=== PATIENT | female | born 1935 | race Caucasian/White ===

== ENCOUNTER → 2017-01-18 | Outpatient (CLI) | payer OTHER ==
[~2017-01-18] VITALS: Ht 165.1 cm; Wt 62.9 kg
[~2017-01-18] MED LIST: ADULT LOW DOSE81 MG PO; ARICEPT 5 MG TAB5 MG PO; B12 5,000 MCG1 EACH SL; CYMBALTA30 MG PO; EFFEXOR37.5 MG PO; KEPPRA250 MG PO; OMEGA 3-6-9 CO1 EACH PO; PHENYTOIN SODI100 M3 PO; PREDNISONE 5 MG5 MG PO; PREVACID15 MG PO; PRILOSEC 20 MG20 MG PO; TRAMADOL 50 MG50 MG PO; VITAMIN D400 UNI1 PO; VITAMIN E200 UNI4 PO; VITAMINC500 PO; VOLTAREN GEL 1100 G1 TOP
--- NOTE | ~2017-01-18 | HPC ---
[facility] [place] [address] PAIN MANAGEMENT CONSULTATION Name: REDDY PANIAGUA APRIL Room #: REG KATINA Villalta#: [id number] Admission: 01/18/17 Attend Phys: Shaka Davis DO Discharge: Date of : 33 Report #: [id number] THIS REPORT FOR: //name// CC: Chaparro Davis The patient is a pleasant 81-year-old female being treated for lumbar radiculopathy secondary to spinal stenosis was seen 12/28/2016, given a midline epidural injection at L3-L4 at that time. She prior had a right SI joint injection in September 2016. She returns to pain clinic today noting that injection afforded good incremental relief. Patient specifically notes 75% improvement that is ongoing. She still, however, has some radicular component of pain, noting that the back pain, however, is gone. She rates her pain fairly high; however, about 7/10. Again, pain today is primarily in the right groin and upper leg. Exacerbated with standing and walking. The patient apparently has an MRI this , but it sounds like it is more from her pelvis looking follow up from prior diagnosis of lymphoma. May benefit from lumbar MRI if symptoms do not glenys with today's intervention. PHYSICAL EXAMINATION: Shows an 82-year-old female, BMI is 23.1 kilograms per meter squared. Vital signs generally stable. Still has slight decreased right hip flexion, lower extremity extension strength. Moderately antalgic gait. ASSESSMENT: Symptomatic lumbar radiculopathy secondary to spinal stenosis. PROCEDURE: Lumbar epidural injection under fluoroscopy. PROCEDURE NOTE: After both written and informed consent to include risk of spinal cord damage, increased pain, weakness and dural puncture, the patient was taken to the fluoroscopy suite, placed in the prone position. After sterile prep and drape, a skin wheal with lidocaine was raised. A 22-gauge epidural Tuohy needle was inserted in the midline at L3-4 with good loss to resistance. Negative aspiration for cerebrospinal fluid or blood was noted. Then 1 mL of Omnipaque under biplanar fluoroscopy showed good spread within the epidural space. This was followed with 80 mg of triamcinolone plus 1 mL of 1.5% preservative-free Xylocaine, 0.5 mL Xylocaine was then injected to flush the needle; it was removed. The patient was monitored for an appropriate period of time and discharged in good and stable condition. <ELECTRONICALLY SIGNED> By: Shaka Davis DO 01/21/17 1237 1339 [id number] Shaka Davis DO /nt
[2017-01-18 13:31] VITALS: BP 161/88
== END ==
LOC: PAIN 06:40
DX: M54.16 Radiculopathy, lumbar region (principal); M48.06 Spinal stenosis, lumbar region; Z87.891 Personal history of nicotine dependence

== ENCOUNTER → 2017-02-08 | Outpatient (CLI) | payer OTHER ==
[~2017-02-08] VITALS: Ht 165.1 cm; Wt 60.8 kg
--- NOTE | ~2017-02-08 | HPC ---
[facility] [place] [place] [address] PAIN MANAGEMENT CONSULTATION Name: REDDY PANIAGUA APRIL Room #: REG KATINA Villalta#: [id number] Admission: 02/08/17 Attend Phys: Shaka Davis DO Discharge: Date of : 33 Report #: [id number] THIS REPORT FOR: //name// CC: Chaparro Davis HISTORY OF PRESENT ILLNESS: The patient is a pleasant 81-year-old female typically treated for lumbar radiculopathy secondary to spinal stenosis, component of right SI joint dysfunction. Last seen in the pain clinic 01/18/2017. I repeated an L3-L4 lumbar epidural injection (prior 12/28/2016 L3-L4 lumbar epidural injection under fluoroscopy has afforded some 75% relief of baseline pain). She notes the curious thing happened over the second injection. She developed exquisite tailbone pain. Again, we were good 8-10 inches above the tailbone during the injection. I reviewed the images. They appeared generally identical to the prior injection, 12/28/2016. She does have tenderness to palpation over the tailbone. She does note, however, that fortunately the radicular pain seems to be improved. She does not have classic L3 radicular pattern pain at this time. She is noticing that she has some pain in the right knee, which has been ongoing, seems to be getting worse recently. Today physical examination does show ballotable edema over the right knee in an 81-year-old female, BMI is 22.3 kilograms per meter squared. Does have some tenderness over the sacrum as well. Blood pressure is slightly elevated 151/91, pulse 95, respirations 16. Gait is tandem. Lumbar flexion is limited. ASSESSMENT: Symptomatic lumbar radiculopathy secondary to spinal stenosis and right sacroiliac joint pain by history with new diagnosis of right knee degenerative joint disease and tailbone pain. RECOMMENDATIONS: 1. We will seek x-rays of the pelvis and sacrum and right knee. 2. Follow up in 2 weeks for reevaluation. If the ballotable edema persists in that right knee, we may consider right knee arthrocentesis and steroid injection. We will further evaluate subjective tailbone pain and review diagnostic studies at that time. I am dictating today a few hours after having seen the patient. I had the opportunity to review the x-rays obtained earlier today. Right knee notes minimal effusion. There appears to be a little narrowing of the intraarticular joint, more so on the medial aspect. Pelvis x-ray show no definitive pelvic or sacral fracture. Specific view of the sacrum and coccyx notes the lower coccygeal segment angles forward, though within normal limits again and no acute fractures noted. There is some DJD noted at the articulation of the coccyx and sacrum. Approximately 25 minutes was spent with the patient today in clinic, [address] [place] [address] PAIN MANAGEMENT CONSULTATION Name: REDDY PANIAGUA APRIL Room #: REG KATINA Villalta#: [id number] Admission: 02/08/17 Attend Phys: Shaka Davis DO Discharge: Date of : 33 Report #: [id number] time spent counseling the patient, reviewing new pain issues and suggesting diagnostic criteria. By: 1601 21 Shaka Davis DO /alexis
[2017-02-08 14:24] VITALS: BP 151/91
== END | disposition home or self-care (01) ==
LOC: PAIN 07:16
DX: M48.06 Spinal stenosis, lumbar region (principal); M17.11 Unilateral primary osteoarthritis, right knee; M53.3 Sacrococcygeal disorders, not elsewhere classified; Z87.891 Personal history of nicotine dependence

== ENCOUNTER → 2017-02-22 | Outpatient (CLI) | payer OTHER ==
[~2017-02-22] VITALS: Ht 165.1 cm; Wt 61.7 kg
--- NOTE | ~2017-02-22 | HPC ---
[facility] [place] [address] PAIN MANAGEMENT CONSULTATION Name: REDDY PANIAGUA APRIL Room #: REG KATINA Villalta#: [id number] Admission: 02/22/17 Attend Phys: Shaka Davis DO Discharge: Date of : 33 Report #: [id number] THIS REPORT FOR: //name// CC: Chaparro Davis HISTORY OF PRESENT ILLNESS: The patient is an 81-year-old female, prior seen in the pain clinic 02/08/2017. She has been treated for symptomatic lumbar radiculopathy secondary to spinal stenosis, component of right SI mediated pain. Last visit, when she had fallen, had some tailbone pain. I had ordered x-rays of the right knee and pelvis. These all were fairly unremarkable from a fracture standpoint. She returns to the pain clinic today with ongoing lumbar radicular pain, which she rates 5 on a 0-10 visual analog scale. Notes the right knee occasionally locks. She uses a cane in her left hand. Again, the x-ray was nondiagnostic, certainly no fractures noted. PHYSICAL EXAMINATION: GENERAL: Shows an 81-year-old female. BMI is 22.6 kilograms per meter squared. MUSCULOSKELETAL: Rises from the chair using armrests, antalgic gait. Diffuse tenderness across the low back. Radicular pain, bilateral legs, posterior aspect. ASSESSMENT: Symptomatic lumbar radiculopathy secondary to spinal stenosis. RECOMMENDATION: Repeat epidural injection under fluoroscopy today. At this time, we will use an L4-L5 approach. Follow up simply as needed. PROCEDURE: Lumbar epidural injection under fluoroscopy. PROCEDURE NOTE: After both written and informed consent to include risk of spinal cord damage, increased pain, weakness and dural puncture, the patient was taken to the fluoroscopy suite, placed in the prone position. After sterile prep and drape, a skin wheal with lidocaine was raised. A 22-gauge epidural Tuohy needle was inserted in the midline at the level of L4-L5 with good loss to resistance. Negative aspiration for cerebrospinal fluid or blood was noted. Then 1 mL of Omnipaque under biplanar fluoroscopy showed good spread within the epidural space. This was followed with 80 mg of triamcinolone plus 1 mL of 1.5% preservative-free Xylocaine, 0.5 mL Xylocaine was then injected to flush the needle; it was removed. The patient was monitored for an appropriate period of time and discharged in good and stable condition. <ELECTRONICALLY SIGNED> By: Shaka Davis DO 02/25/17 0750 1558 0104 Shaka Davis DO /nt
[2017-02-22 13:55] VITALS: BP 150/88
== END ==
LOC: PAIN 07:17
DX: M48.06 Spinal stenosis, lumbar region (principal); M54.16 Radiculopathy, lumbar region; Z87.891 Personal history of nicotine dependence

== ENCOUNTER 2017-03-22 17:50 | Inpatient (IN) | payer OTHER ==
[~2017-03-22] VITALS: Ht 165.1 cm; Wt 59.0 kg
--- NOTE | ~2017-03-22 | EKG ---
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
--- NOTE | ~2017-03-22 | HC ---
[facility] [place] [place] [address] CONSULTATION Name: REDDY PANIAGUA APRIL Room #: 416-P ADM IN M.R.#: [id number] Admission: 03/22/17 Attend Phys: Blossom Anand MD Discharge: Date of : 33 Report #: [id number] THIS REPORT FOR: //name// CC: Chaparro Gómez DATE OF SERVICE: 03/22/2017 REASON FOR CONSULTATION: Left femur fracture. HISTORY OF PRESENT ILLNESS: The patient is an 81-year-old female who fell off her steps at home today, sustained a left distal femur fracture. She was brought to the emergency room and admitted for definitive treatment. PAST MEDICAL HISTORY: Significant for bilateral total hip arthroplasty. CURRENT MEDICATIONS: Include diclofenac, vitamin D, vitamin B12, tramadol, vitamin C, aspirin 81 mg p.o. 3 times a week, duloxetine. ALLERGIES: Include LEVAQUIN, which causes seizures. SOCIAL HISTORY: She does not smoke or drink. She lives alone at home. She does ambulate with a cane. PHYSICAL EXAMINATION: GENERAL: This is a well-developed, well-nourished female in no acute distress. She is alert and oriented, pleasant, cooperative with exam. EXTREMITIES: Examination of left lower extremity shows to have a knee immobilizer in place. She is neurologically intact distally with full sensation to light touch in the foot and toes. She has 2+ dorsalis pedis pulse. Anytime her leg is moved, she does have severe pain in her left knee. X-RAY EXAMINATION: AP and lateral of the left femur and knee showed to have a distal third femur fracture with approximately 90 degrees of posterior angulation, apex anterior. ASSESSMENT: Left distal femur fracture. PLAN: Treatment options were discussed today with the patient. I have her scheduled for 8 a.m. tomorrow morning for ORIF of her distal femur. Unfortunately, this is not amenable to a nail secondary to her total hip arthroplasty. We will likely have to put a long plate on to span the region of her distal femoral stem in order to decrease the chance of a stress riser. We discussed the limited weightbearing status postoperatively as well as the need for possible long term placement for [place] [address] CONSULTATION Name: REDDY PANIAGUA APRIL Room #: 416-P [facility] IN .R.#: [id number] Admission: 03/22/17 Attend Phys: Blossom Anand MD Discharge: Date of : 33 Report #: [id number] understanding and wished to proceed. Thank you for allowing us to participate in the care of the patient. <ELECTRONICALLY SIGNED> By: Mihai Gómez MD 03/26/17 0728 2226 4790 Mihai Gómez MD /nt
--- NOTE | ~2017-03-22 | H ---
[facility] [place] [address] HISTORY AND PHYSICAL Name: REDDY PANIAGUA APRIL Room #: 416-P DIS IN M.R.#: [id number] Admission: 03/22/17 Attend Phys: Blossom Anand MD Discharge: 03/26/17 Date of : 33 Report #: [id number] THIS REPORT FOR: //name// CC: Chaparro Gómez ATTENDING PHYSICIAN: Julio Cesar Medrano PRIMARY CARE PHYSICIAN: Chaparro Pagan M.D. CHIEF COMPLAINT: Left leg pain after a fall. HISTORY OF PRESENT ILLNESS: The patient is an 81-year-old female, who lives at home. She was going down her front steps when she missed the last step and fell forward onto her left leg. She landed in the grass. She did not hit her head or lose consciousness. She immediately had severe left leg pain that radiated down into her left ankle. She could not ambulate. She laid on the ground and call for help with her neighbor, called EMS. She was brought in the ER, noted to have a femur fracture and had been admitted for surgical evaluation. She has been receiving pain medication, but continuous to have severe left leg spasm. PAST MEDICAL HISTORY: Seizure disorder, COPD, B12 deficiency, GERD, anemia, lymphoma, mild dementia, osteoarthritis. PAST SURGICAL HISTORY: Bilateral hip replacement, cataract repair. ALLERGIES: LEVAQUIN causes seizures. HOME MEDICATIONS: Vitamin B12 daily, vitamin D daily, tramadol 50 mg p.r.n., vitamin C daily, vitamin E daily, aspirin 81 mg 3 times a week, Cymbalta 30 mg p.o. at bedtime, and fish oil daily. SOCIAL HISTORY: The patient lives home alone. She is an ex-smoker, having smoked 1 pack of cigarettes per day, but quit in 2008. Denies any alcohol use. She normally ambulates with a cane. FAMILY HISTORY: Significant for diabetes in her mother and her father of Hodgkin's lymphoma. REVIEW OF SYSTEMS: The patient has been treated for some type of lymphoma. She receives infusion about every 3 months. She is due this month for treatment. She follows with Dr. Avery. She has also been having some recent right leg. Thereof pain felt to be related to her lower back. She sees Dr. Davis in pain management for epidural shot. Her last shot was February. She is actually getting set up for an MRI of her back to further evaluate this. All other [address] [address] HISTORY AND PHYSICAL Name: REDDY PANIAGUA APRIL Room #: 416-P [facility] IN M.R.#: [id number] Admission: 03/22/17 Attend Phys: Blossom Anand MD Discharge: 03/26/17 Date of : 33 Report #: [id number] 12-point review of systems was reviewed with the patient, otherwise negative unless stated in the HPI. PHYSICAL EXAMINATION: GENERAL: The patient is an alert female in no acute distress. VITAL SIGNS: Temperature 36.6, heart rate 89, respirations 22, blood pressures 137/77, oxygen is 97% on room air. HEENT: PERRLA. Sclerae is nonicteric. Oral mucosa is pink and moist. NECK: Supple, no JVD noted. CARDIOVASCULAR: Normal S1, S2. No murmurs, rubs or gallops. RESPIRATORY: Breath sounds are clear bilaterally. No wheezing or rhonchi. Breathing is nonlabored. ABDOMEN: Soft, nontender, nondistended with positive bowel sounds. VASCULAR: Her left foot is somewhat cool. Pedal pulses 1+ and right foot pedal pulses2+. There is no edema. MUSCULOSKELETAL: She does have significant tenderness of the left lower extremity. There is some swelling on the left thigh. The left knee is currently in an immobilizer. NEUROLOGIC: The patient is alert and oriented x 3. Speech is clear. She is moving her upper extremities equally. LABORATORY DATA AND DIAGNOSTICS: WBC is 6.2, hemoglobin 11.7, platelets 149. Sodium 137, potassium 4.0, BUN 16, creatinine 1.1, glucose 110. LFTs are within normal limits. INR is 1.0. X-ray showed an acute comminuted and angulated fracture of the distal femoral metadiaphysis. The angulation measures approximately 98 degrees. ASSESSMENT AND PLAN: 1. Left femur fracture. The patient has been placed in immobilizer while awaiting orthopedic evaluation. She will need repair. She is neurovascularly intact. Continue with pain medication diazepam for muscle spasms. We will keep her n.p.o. Chest x-ray and UA for preop evaluation. 2. Chronic obstructive pulmonary disease, this is stable. We will add breathing treatments p.r.n. 3. Seizure disorder. She is not on any current medication. 4. History of lymphoma. She is due for outpatient treatment this month. She follows with Dr. Avery. 5. Mild dementia. The patient is forgetful and is somewhat repetitive, but able to maker her own decisions. 6. Deep vein thrombosis prophylaxis. Placed SCDs. [address] [address] HISTORY AND PHYSICAL Name: REDDY PANIAGUA APRIL Room #: 416-P [facility] IN M.R.#: [id number] Admission: 03/22/17 Attend Phys: Blossom Anand MD Discharge: 03/26/17 Date of : 33 Report #: [id number] We will continue to follow the patient closely throughout the hospitalization and make changes based on clinical status. <ELECTRONICALLY SIGNED> By: DOC Mathis 03/28/17 0109 0920 1013 DOC Mathis /alexis
--- NOTE | ~2017-03-22 | O ---
[place] [address] OPERATIVE REPORT Name: REDDY PANIAGUA APRIL Room #: 416-P ADM IN M.R.#: [id number] Admission: 03/22/17 Attend Phys: Blossom Anand MD Discharge: Date of : 33 Report #: [id number] THIS REPORT FOR: //name// CC: Chaparro Gómez DATE OF SERVICE: 03/23/2017 PREOPERATIVE DIAGNOSIS: Left distal femur fracture. POSTOPERATIVE DIAGNOSIS: Left distal femur fracture. PROCEDURE: ORIF of left distal femur fracture. SURGEON: Mihai Gómez MD. PLUSH FINISHER: Tran Avelar PA-C. ANESTHESIA: General. IMPLANTS: Synthes 14-hole distal lateral femoral locking plate with multiple cortical and locking screws. ESTIMATED BLOOD LOSS: 100 mL. CONDITION UPON LEAVING THE OPERATING ROOM: Stable. INDICATIONS FOR PROCEDURE: The patient is an 81-year-old female who fell off of her porch and sustained a left supracondylar distal femur fracture. She has had a history of previous left total hip arthroplasty with a cemented stem. After discussion with her, she elected for ORIF. Given the nature of her previous total hip arthroplasty, it was decided to use a long locking plate to stay on the entire femur up to the hip arthroplasty. DESCRIPTION OF PROCEDURE: Risks, benefits, alternatives, and complications were discussed in detail with the patient including but not limited to risk of anesthesia, risk of damage to nerves, arteries, blood vessels, risk for infection, bleeding, risk for malunion, nonunion, and need for reoperation. An informed consent was obtained from the patient. The left knee was appropriately marked in the preoperative holding area. She was brought to the operating room and placed in the supine position on the operating room table. General endotracheal anesthesia was induced without complication. Left lower extremity was prepped and draped in normal sterile fashion. Timeout was performed, properly identifying the patient, procedure, as well as the instrumentation and implants. All in the operating room were in agreement. A lateral incision over [address] [address] OPERATIVE REPORT Name: REDDY PANIAGUA APRIL Room #: 416-P [facility] IN M.R.#: [id number] Admission: 03/22/17 Attend Phys: Blossom Anand MD Discharge: Date of : 33 Report #: [id number] the distal femur was then made with #10 blade through the skin. Dissection was taken down to the IT, and the IT band was split longitudinally in line with its fibers. A David elevator was used to clean off the tissue of the distal femur. The fracture was then identified under fluoroscopic imaging and palpated. There was some comminution and impaction of the fracture, and it was decided to leave fixed with submuscular 14-hole plate. This was fixed distally with a guidewire and then fluoroscopic imaging under AP and lateral images was used to verify adequate positioning of the plate, both proximally and distally. One cortical screw was used distally to bring the plate down to the bone and then locking screws were placed in the distal 5 holes. The plate was then fixed provisionally proximally using a guidewire and then one cortical screw proximally was placed to bring the plate down to the bone. After this, percutaneous locking screws were placed both in unicortical femoral stem and bicortical more distal, more completion of the plate construct. After this, final fluoroscopic images were brought in to verify adequate fracture reduction and placement of hardware. Wound was thoroughly irrigated with normal saline. IT band was closed with 0 Vicryl, skin was closed with 2-0 Vicryl, skin osiel, soft dressing of Adaptic, 4 x 4s, ABD, and Medipore tape were applied. The patient tolerated this procedure well and went to the recovery room under the care of anesthesia postoperatively. <ELECTRONICALLY SIGNED> By: Mihai Gómez MD 03/26/17 0728 1314 1820 Mihai Gómez MD /nt
[~2017-03-22 17:50] MED LIST changes: -HYDROCODONE-AP1 EAC6 PO
[2017-03-22 19:24] LABS: ABSOLUTE NEUTROPHILS 4.9 thou/uL (1.4-8.2); BASOPHILS 0.6 % (0.0-2.0); EOSINOPHILS 0.4 % (0.0-3.0); HEMATOCRIT 33.8 % (37.0-47.0); HEMOGLOBIN 11.7 gm/dL (12.0-15.0); LYMPHOCYTES 14.5 % (24.0-44.0); MCH 32.5 pg (26.0-34.0); MCHC 34.8 g/dL (28.0-37.0); MCV 93.4 fL (80.0-100.0); MONOCYTES 5.2 % (1.0-8.0); PLATELET COUNT 149 thou/uL (150-400); POLYS 79.3 % (36.0-66.0); RBC 3.62 mil/uL (4.20-5.00); RDW 13.5 % (10.5-14.5); WBC 6.2 thou/uL (4.0-11.0)
[2017-03-22 19:30] LABS: CALCIUM 8.4 mg/dL (8.5-10.1); CREATININE 1.1 mg/dL (0.6-1.0)
[2017-03-22 19:35] LABS: ALBUMIN 3.6 g/dL (3.4-5.0); TOTAL BILIRUBIN 0.5 mg/dL (<0.1-1.0); TOTAL PROTEIN 6.5 g/dL (6.4-8.2)
[2017-03-22 19:36] LABS: APTT 23.7 Seconds (24.5-32.8); PROTIME 10.4 Seconds (9.3-11.4)
[2017-03-22 19:38] LABS: MANUAL DIFF NO
[2017-03-22 21:04] VITALS: BP 134/86
[2017-03-22 21:25] VITALS: BP 135/85
[2017-03-23] VITALS (8 sets, daily range): BP systolic 93–122; BP diastolic 44–84
[2017-03-23 04:47] LABS: URINE BILIRUBIN NEGATIVE (Negative); URINE BLOOD 1+ (Negative); URINE COLOR YELLOW; URINE GLUCOSE-RANDOM* NEGATIVE (Negative); URINE KETONES 1+ (Negative); URINE LEUKOCYTES-REFLEX NEGATIVE (Negative); URINE PROTEIN (DIPSTICK) NEGATIVE (Negative); URINE SPECIFIC GRAVITY 1.025 (1.003-1.035); URINE UROBILINOGEN 0.2 E.U./dl (0.2-1.0)
[2017-03-23 05:03] LABS: CASTS None Seen /LPF (None Seen); SQUAMOUS 0-3 Few /LPF (0-3); URINE RBC 0-2 Rare /HPF (0-2)
[2017-03-23 05:04] LABS: CRYSTALS None Seen /LPF (None Seen); URINE WBC-REFLEX 0-5 Rare /HPF (0-5)
[2017-03-23 14:05] LABS: HEMATOCRIT 24.5 % (37.0-47.0); MCH 32.1 pg (26.0-34.0); MCHC 34.5 g/dL (28.0-37.0); MCV 93.1 fL (80.0-100.0); RBC 2.63 mil/uL (4.20-5.00); RDW 13.5 % (10.5-14.5); WBC 7.5 thou/uL (4.0-11.0)
[2017-03-23 14:11] LABS: HEMOGLOBIN 8.5 gm/dL (12.0-15.0)
[2017-03-24] VITALS (8 sets, daily range): BP systolic 88–112; BP diastolic 44–61
[2017-03-24 02:00] LABS: MCH 32.8 pg (26.0-34.0); MCHC 34.6 g/dL (28.0-37.0); MCV 94.6 fL (80.0-100.0); RBC 2.04 mil/uL (4.20-5.00); RDW 13.7 % (10.5-14.5); WBC 6.2 thou/uL (4.0-11.0)
[2017-03-24 02:20] LABS: ALBUMIN 2.4 g/dL (3.4-5.0); CALCIUM 7.1 mg/dL (8.5-10.1); CREATININE 0.9 mg/dL (0.6-1.0); PHOSPHORUS 3.8 mg/dL (2.5-4.9); POTASSIUM 4.3 mmol/L (3.5-5.1)
[2017-03-24 02:21] LABS: HEMATOCRIT 19.3 % (37.0-47.0); HEMOGLOBIN 6.7 gm/dL (12.0-15.0)
[2017-03-24 03:32] LABS: HIV-1 P24 AG Nonreactive (Nonreactive)
[2017-03-24 11:22] LABS: ABSOLUTE RETIC COUNT 0.0433 10^6/uL; OBSERVED RETIC COUNT 2.13 % (0.6-2.6)
[2017-03-25 04:01] VITALS: BP 105/62
[2017-03-25 08:10] LABS: HEMATOCRIT 24.8 % (37.0-47.0); HEMOGLOBIN 8.6 gm/dL (12.0-15.0); MCH 31.7 pg (26.0-34.0); MCHC 34.6 g/dL (28.0-37.0); MCV 91.7 fL (80.0-100.0); RBC 2.7 mil/uL (4.20-5.00); RDW 15.1 % (10.5-14.5); WBC 3.7 thou/uL (4.0-11.0)
[2017-03-25 08:32] LABS: ALBUMIN 2.3 g/dL (3.4-5.0); CALCIUM 7.3 mg/dL (8.5-10.1); PHOSPHORUS 2.3 mg/dL (2.5-4.9); POTASSIUM 3.9 mmol/L (3.5-5.1)
[2017-03-25 09:18] VITALS: BP 145/71
[2017-03-25 17:36] VITALS: BP 126/90
[2017-03-25 20:58] VITALS: BP 131/71
[2017-03-26 05:04] VITALS: BP 132/77
[2017-03-26 06:22] LABS: MCHC 34.6 g/dL (28.0-37.0); MCV 92.4 fL (80.0-100.0); RBC 2.82 mil/uL (4.20-5.00); RDW 14.9 % (10.5-14.5); WBC 3.4 thou/uL (4.0-11.0)
[2017-03-26 06:40] LABS: CALCIUM 7.8 mg/dL (8.5-10.1); CREATININE 0.9 mg/dL (0.6-1.0); POTASSIUM 4.2 mmol/L (3.5-5.1)
[2017-03-26 08:00] VITALS: BP 138/75
[2017-03-26] MEDS ORDERED: HYDROCODONE-AP1 EAC6 PO (12:53)
[2017-03-26 23:07] LABS: HBsAG-EMPLOYEE EXPOSURE Negative (Negative); HCV AB-EMPLOYEE EXPOSURE <0.1 (0.0-0.9)
== END 2017-03-26 15:58 | DRG 480 ==
LOC: ER 17:50 → EROBS 19:55 → 4N 19:55
PROVIDERS: Emergency Medicine; Family Medicine; Hospitalist; Internal Medicine Hematology & Oncology; Nurse Practitioner Acute Care; Orthopaedic Surgery
PROC: 0QSC04Z Reposition Left Lower Femur with Internal Fixation Device, Open Approach (ICD-10-PCS; principal; 2017-03-23)
PROC: 30233N1 Transfusion of Nonautologous Red Blood Cells into Peripheral Vein, Percutaneous Approach (ICD-10-PCS; 2017-03-24)
DX: S72.402A Unspecified fracture of lower end of left femur, initial encounter for closed fracture (principal); E43 Unspecified severe protein-calorie malnutrition; C91.10 Chronic lymphocytic leukemia of B-cell type not having achieved remission; D69.6 Thrombocytopenia, unspecified; E53.8 Deficiency of other specified B group vitamins; D64.9 Anemia, unspecified; F03.90 Unspecified dementia, unspecified severity, without behavioral disturbance, psychotic disturbance, mood disturbance, and anxiety; J44.9 Chronic obstructive pulmonary disease, unspecified; M19.90 Unspecified osteoarthritis, unspecified site; K21.9 Gastro-esophageal reflux disease without esophagitis; Z96.643 Presence of artificial hip joint, bilateral; G40.909 Epilepsy, unspecified, not intractable, without status epilepticus; Z60.2 Problems related to living alone; Z82.49 Family history of ischemic heart disease and other diseases of the circulatory system; Z88.1 Allergy status to other antibiotic agents; Z87.891 Personal history of nicotine dependence; Z83.3 Family history of diabetes mellitus; Z80.7 Family history of other malignant neoplasms of lymphoid, hematopoietic and related tissues; W10.8XXA Fall (on) (from) other stairs and steps, initial encounter; Y93.89 Activity, other specified; Y92.89 Other specified places as the place of occurrence of the external cause; Y99.8 Other external cause status; Z86.718 Personal history of other venous thrombosis and embolism; Z68.21 Body mass index [BMI] 21.0-21.9, adult
CPT/HCPCS: 10091; 50010; 50101; 50386; 50417; 51412; 55430; 56528; 62110; 62900; 70005

== ENCOUNTER → 2017-03-22 | Outpatient (CLI) | payer OTHER ==
[~2017-03-22] VITALS: Ht 165.1 cm; Wt 60.3 kg
[~2017-03-22] MED LIST changes: +HYDROCODONE-AP1 EAC6 PO
--- NOTE | ~2017-03-22 | HPC ---
[facility] [place] [address] PAIN MANAGEMENT CONSULTATION Name: REDDY PANIAGUA APRIL Room #: REG KATINA Villalta#: [id number] Admission: 03/22/17 Attend Phys: Shaka Davis DO Discharge: Date of : 33 Report #: [id number] THIS REPORT FOR: //name// CC: Chaparro Davis DATE OF SERVICE: 03/22/2017 HISTORY OF PRESENT ILLNESS: The patient is an 81-year-old female last seen in the pain clinic on 02/22/2017. The patient has been given 3 lumbar epidural injections, she was initially seen in consultation in September with low back radicular pain and SI mediated pain. Given a right SI joint injection in September, followed up some 3 months later in December with ongoing axial back pain. She has had 3 epidural injections, 12/28/2016, 01/18/2017, and last visit 02/22/2017. The patient notes that while these injections have afforded good relief, she states 85% from the last injection and it has been over 3 weeks, she still has pain that interferes with function. She rates the pain about 6 on a 0-10 visual analog scale. Notes pain is primarily right knee in between hips the low back. The bigger concern is ongoing right leg weakness, which has been quite problematic. This started about 2005 and has been ongoing. The patient uses a cane "for security." She is tender in the left hand. She does not use a cane, which she has at home. She notes pain is 6/10, but it does not interfere with standing or walking. Bigger concern again, however, this ongoing weakness in that right leg. We reviewed her medical history, she had a total hip arthroplasties, left in 2001, right in 2002. She was actually doing fairly well until she tripped over her cane in 2013, fell and broke her pelvis. Had axial back and radicular pain with this. Again, the pain improvement has been significant with the epidural injections, but ongoing right leg weakness remains problematic. PHYSICAL EXAMINATION: VITAL SIGNS: Reveals an 81-year-old female, BMI is 12.1 kilograms per meter squared. VITAL SIGNS: Blood pressure is elevated today at 151/108, pulse 88, respirations 14. GENERAL: Alert and oriented to person, place and time, judged to be a reasonable historian. She uses Voltaren gel topically and occasional tramadol. She averages 1 tablet a day. She is a bit of a "night owl." Gets up around 10:00 a.m., eats breakfast around 11:00, takes tramadol around 1:00 p.m. and then goes to bed about 2:00 a.m. She notes weakness is profound throughout the day. The tramadol helps with pain overall. [address] [address] PAIN MANAGEMENT CONSULTATION Name: REDDY PANIAGUA APRIL Room #: REG KATINA Villalta#: [id number] Admission: 03/22/17 Attend Phys: Shaka Davis DO Discharge: Date of : 33 Report #: [id number] MUSCULOSKELETAL: She has a markedly antalgic gait favoring the right leg. Right hip flexion strength is literally 1, she has to lift the leg to get in and out of a car. She cannot climb stairs at this leg. All other muscle groups on the right leg are better, lower extremity extension and dorsiflexion, plantarflexion are about 3/5. Left leg is a little bit stronger overall, perhaps 4/5 to all muscle groups tested. Straight leg raise is negative. Patellar reflex is diminished on the right. Achilles reflexes are diminished symmetrically. SKIN OR INTEGUMENT: Generally intact. The patient was seen for prolonged visit today from [id number], greater than 50% of this prolonged visit was spent reviewing medical issues, physical exam and counseling the patient. Concerned that some ongoing weaknesses may have an amenable etiology, though it is curious. Diagnostic studies have included right knee, 02/08/2017, which was unremarkable for fracture and pelvis; 02/08/2017, showing no definitive pelvic or sacral fractures noted. I ordered those in followup due to ongoing back pain subsequent to her prior fall. Although, reviewing I do not see any recent MRI of the lumbar spine. X-rays do show some significant lumbar scoliosis. The patient's oncologist has ordered a whole body scan with no focal metastatic sites noted (the patient has history of lymphoma, diagnosed in 2015, treated with chemotherapy. ASSESSMENT: Symptomatic lumbar radiculopathy with ongoing right leg weakness. History of right SI joint dysfunction and history of lymphoma. RECOMMENDATION: The patient encouraged to use tramadol a little more aggressively. She can use up to 3 times a day. Today, I did order MRI of the lumbar spine. We will see her back after the MRI to evaluate right hip weakness, may refer to neurology for further evaluation and consideration for an EMG. Discharged in good and stable condition after prolonged visit. <ELECTRONICALLY SIGNED> By: Shaka Davis DO 03/27/17 [id number] Shaka Davis DO /nt
[2017-03-22 13:45] VITALS: BP 151/108
== END | disposition home or self-care (01) ==
LOC: PAIN 07:08
DX: M54.16 Radiculopathy, lumbar region (principal); M25.561 Pain in right knee; M53.3 Sacrococcygeal disorders, not elsewhere classified; C85.90 Non-Hodgkin lymphoma, unspecified, unspecified site; M62.81 Muscle weakness (generalized); Z87.891 Personal history of nicotine dependence

== ENCOUNTER → 2018-06-06 | Outpatient (CLI) | payer OTHER ==
[~2018-06-06] VITALS: Ht 162.6 cm; Wt 61.2 kg
[~2018-06-06] MED LIST changes: +HYDROCODONE-AP1 EAC6 PO; +IBUPROFEN 200200 M1 PO
--- NOTE | ~2018-06-06 | HPC ---
[facility] [place] [address] PAIN MANAGEMENT CONSULTATION Name: REDDY PANIAGUA APRIL Room #: REG LEONILAKarlee Villalta#: [id number] Admission: 06/06/18 Attend Phys: Romeo Archibald MD Discharge: Date of : 33 Report #: [id number] THIS REPORT FOR: //name// CC: Chaparro Archibald DATE OF SERVICE: 06/06/2018 FOLLOWUP HISTORY: The patient is an 82-year-old female who has been seen in the pain clinic by Shaka Davis. This is my first time visiting with her. She is an 82-year-old female who has undergone epidural steroid injections. She also has received right SI joint injection secondary to pain in September 2017. She returns today indicating that she has noted some pain in her right lower back in the SI area and would like to proceed with another epidural steroid injection at this point. She rates her pain as a 10/10. Pain has been worse over the last week. She is having difficulties straightening up because of the pain. Walking is more problematic. Notes that the pain improves with use of medication as well as when she sits and rests. She gleaned greater than 85% benefit from her injections in the past. She thinks that this would be a reasonable treatment option at this juncture. The patient does walk with a cane. She has a history of total hip arthroplasty on the left side in 2001, right side in 2002. She had done fairly well until 2003, she fell and broke her pelvis. She has had axial back pain since that time. The patient has returned to the pain clinic today for treatment of the right SI joint discomfort. ALLERGIES: No known drug allergies. MEDICATIONS: Ibuprofen 200 mg q. 6 hours p.r.n., Cymbalta 30 mg at bedtime, Ultram 50 mg b.i.d., vitamin C 500 mg, vitamin D 400 units, vitamin E 200 units, B12 5000 mcg. PAST MEDICAL HISTORY: 1. Asthma/COPD. 2. Kidney disease. 3. Emotional problems. 4. Lymphoma. 5. Chronic lymphocytic leukemia of B-cell type. 6. Moderate sized hiatal hernia. PAST SURGICAL HISTORY: Bilateral hip replacement, left 2001, right 2002. SOCIAL HISTORY: She is retired from the [employer] in 2006. LABORATORY DATA: Exam of the right knee, views of 02/08/2017, the right knee appears intact without fractures. There is minimal knee effusion present. [address] [address] PAIN MANAGEMENT CONSULTATION Name: REDDY PANIAGUA APRIL Room #: REG CLI BisiNellie#: [id number] Admission: 06/06/18 Attend Phys: Romeo Archibald MD Discharge: Date of : 33 Report #: [id number] There are scattered vascular calcifications. Examination of the pelvis, AP. 02/08/2017, bilateral hip replacements appear adequate in position. Marked osteopenic changes are seen throughout the pelvis. No obvious fractures seen. Moderate SI joint degenerative changes. Extensive lumbar spondylosis seen with disk space narrowing. Previous laminectomy changes and moderate left convex curvature. REVIEW OF SYSTEMS: Wears glasses, otherwise generally unremarkable. Sometimes experiences shortness of breath. PAIN CLINIC ASSESSMENT: 1. Osteoarthritis. The patient has arthritic changes in her hips. 2. Height 5 feet 4 inches, weight 135 pounds, BMI 23. 3. Vital signs: Blood pressure 123/66, pulse 75, respiratory rate 16, room air saturation 100%. 4. Pain intensity 08/20. 5. Fall risk. The patient has not fallen in the last 3 months. She does need some help with standing and walking. The patient walks with a cane. 6. Blood thinner. The patient is on a blood thinning medication. 7. Hypertension. The patient is not being treated for hypertension. 8. Opioid therapy greater than 6 weeks. The patient is not on a chronic opioid regimen. 9. Risk assessment for opioids low, 0/3. 10. Functional assessment tool, . 11. Recreational drugs. The patient denies use of recreational drugs. 12. Tobacco: The patient is a former smoker. 13. Alcohol: The patient denies use of alcoholic beverages. PHYSICAL EXAMINATION: GENERAL: The patient is a well-developed white female, appears her stated age. She is alert and oriented x 3. Affect is appropriate. Speech is fluent. HEENT: Normocephalic, atraumatic. Extraocular eye muscles intact. Mucous membranes are moist. Hearing is within normal limits. HEART: Regular rate. LUNGS: Decreased breath sounds without significant crackles or rales. ABDOMEN: Nontender. EXTREMITIES: Upper extremity muscle strength is judged to be 4/5 for the major muscle groups in the upper extremity. Lower extremity muscle strength is 4+/5. The patient walks with an antalgic gait. Complains of pain in the SI joint area. States that she has a loose screw or has screws in her left knee. It is cold to touch. Does not seem like there is an infection brewing. The patient notes that her pain is significant when she is walking. She states that it "hurts like crazy when walking." Exacerbated by standing. IMPRESSION: 1. Asthma/chronic obstructive pulmonary disease. [facility] [address] [place] [address] PAIN MANAGEMENT CONSULTATION Name: REDDY PANIAGUA APRIL Room #: REG [facility] [id number] Admission: 06/06/18 Attend Phys: Romeo Archibald MD Discharge: Date of : 33 Report #: [id number] 2. Kidney disease. 3. Emotional problems. 4. Lymphoma. 5. Chronic lymphocytic leukemia of B-cell type. 6. Moderate sized hiatal hernia. 7. Exacerbation of right sacroiliac joint pain. RECOMMENDATIONS: We discussed treatment options with the patient. Risks and benefits of an SI joint injection were again discussed. Possible complications of the procedure, which improvement, no improvement or worsening of pain, bleeding and the patient elects to proceed. PROCEDURE NOTE: The patient was taken to the examination area. She was assisted in getting on the exam table. Her back was sterilely prepped with a Betadine solution and allowed to dry. Fluoroscopy using anterior and posterior viewing was secured. A 25-gauge needle was then advanced into the area after it had been numbed it with 1% lidocaine at the skin level. A total of 80 mg Depo-Medrol with 6 mL of 0.5% bupivacaine was injected. The patient tolerated the procedure well. There were no complications. She remained in the pain clinic for an appropriate amount of time. She will follow up as needed. I would like to thank you for letting us participate in her care. By: [id number] Romeo Archibald MD /nt
[2018-06-06 14:05] VITALS: BP 123/66
== END | disposition home or self-care (01) ==
LOC: PAIN 03-29 05:51
DX: M53.3 Sacrococcygeal disorders, not elsewhere classified (principal); G89.29 Other chronic pain; J44.9 Chronic obstructive pulmonary disease, unspecified; N28.9 Disorder of kidney and ureter, unspecified; C91.10 Chronic lymphocytic leukemia of B-cell type not having achieved remission; Z96.643 Presence of artificial hip joint, bilateral; Z98.890 Other specified postprocedural states; Z79.899 Other long term (current) drug therapy; Z87.891 Personal history of nicotine dependence; Z88.8 Allergy status to other drugs, medicaments and biological substances